=== PATIENT | male | born 1970 | race Caucasian/White ===

== ENCOUNTER → 2024-12-28 | Outpatient (CLI) | payer OTHER ==
[~2024-12-28] MED LIST: AMLO1TAB24; ATOR40TA75; GABA-1171; GNP250TA9 PO; LOSA100T46; MECL-86 PO; PROP60TA14; VITA1TAB82 PO; ZYRTTAB8 PO
== END ==
LOC: M CARPUL 09:02
PROVIDERS: ATTEND Physician Assistant
DX: I77.810 Thoracic aortic ectasia (principal)